=== PATIENT | male | born 1980 | race African-American/Black ===

== ENCOUNTER 2016-07-30 15:58 | Emergency (ER) | payer BC ==
[~2016-07-30] VITALS: Ht 182.9 cm; Wt 86.2 kg
[2016-07-30 16:18] VITALS: BP 138/82
[2016-07-30] MEDS ORDERED: Lidocaine 1% 10mg/ml/Epi 0.005mg/ml 30ml vial INJ ONE (16:30)
[2016-07-30] MEDS ORDERED: TdaP Vaccine 0.5ml Syr IM ONE (16:30)
[2016-07-30] MEDS ORDERED: Bacitracin Oint UD TOPIC ONE (16:30)
[2016-07-30] MEDS ORDERED: BACITRACIN1 APPLIC TOPIC (17:21)
[2016-07-30] MEDS ORDERED: IBUPROFEN600 MG ORAL (17:21)
[2016-07-30 17:25] VITALS: BP 138/82
--- NOTE | 2016-07-30 21:31 | Emergency Room Report ---
History of Present Illness General Chief Complaint: Laceration Source: Patient Present Illness HPI The patient is a 36-year-old male presenting with a laceration to the left knee. The patient states that he slipped in the shower in the left knee broke the glass screen. Pain is described as a 5/10 sharp sensation to the knee. Patient denies radiating pain and denies numbness or tingling. The patient denies prior injury to the knee. Allergies: Coded Allergies: No Known Allergies (Unverified , 07/30/16) Patient History Past Medical History: see triage record Pertinent Family History: none Reviewed Nursing Documentation: PMH: Agreed, PSxH: Agreed Nursing Documentation-PMH Past Medical History: No History, Except For Hx Asthma: Yes Review of Systems All Other Systems: negative except mentioned in HPI Physical Exam Vital Signs Date Time Temp Pulse Resp B/P Pulse Ox O2 Delivery O2 Flow Rate FiO2 07/30/16 16:12 98.1 78 14 138/82 100 Room Air Sp02 EP Interpretation: reviewed, normal General Appearance: no apparent distress, alert, GCS 15, non-toxic Head: normocephalic, atraumatic Eyes: bilateral eye PERRL, bilateral eye normal inspection Respiratory: chest non-tender, lungs clear, normal breath sounds, speaking full sentences Cardiovascular #1: regular rate, rhythm, no edema Musculoskeletal: gait/station normal, normal range of motion, no calf tenderness, tender - TTP over laceration sites Neurologic: alert, oriented x3, responsive, motor strength/tone normal, sensory intact, speech normal Psychiatric: judgement/insight normal, memory normal, mood/affect normal, no suicidal/homicidal ideation Reflexes: 3+ bicep (R), 3+ bicep (L), 3+ tricep (R), 3+ tricep (L), 3+ knee (R) , 3+ knee (L) Skin: normal color, no rash, well hydrated, normal turgor, laceration - L anterior knee: 5cm linear laceration is inferior and 2cm linear laceration is superior. Lymphatic: no adenopathy Procedures Laceration/Wound Repair Laceration/Wound Repair #1: Consent: Verbal Wound Location: lower extremity - L knee Wound's Depth, Shape: superficial, linear Wound Length (cm): 5 Wound Explored: clean Irrigated w/ Saline (ccs): 300 Betadine Prep?: Yes Anesthesia: 1% Lidocaine, Lidocaine w/ Epi Volume Anesthetic (ccs): 5 Wound Debrided: minimal Wound Repaired With: sutures Suture Size/Type: 4:0, proline Number of Sutures: 5 Layer Closure?: No Sterile Dressing Applied?: Yes Splint Applied?: No Sling Applied?: No Patient Tolerated: Well Complications: None Laceration/Wound Repair #2: Consent: Verbal Wound Location: lower extremity - L knee Wound's Depth, Shape: superficial, linear Wound Length (cm): 2 Wound Explored: clean Irrigated w/ Saline (ccs): 100 Betadine Prep?: Yes Anesthesia: 1% Lidocaine, Lidocaine w/ Epi Volume Anesthetic (ccs): 3 Wound Repaired With: sutures Suture Size/Type: 4:0, proline Layer Closure?: No Sterile Dressing Applied?: Yes Splint Applied?: No Sling Applied?: No Patient Tolerated: Well Complications: None Medical Decision Making PA Attestation Dr. Aguillon is my supervising physician. Patient management was discussed with my supervising physician Diagnostic Impression: Primary Impression: Laceration ER Course The patient is a 36-year-old male presenting with a laceration to the left knee. Ddx considered include but not limited to fracture, tendon/ligament injury, avulsion, nerve damage PE: vitals WNL. NAD. L anterior knee: 5cm linear laceration is inferior and 2cm linear laceration is superior. No bleeding. Extends through dermis. Full AROM of knee. SILT. No edema. No bony tenderness. The wound was irrigated with normal saline and cleaned with betadine. A 27g needle was used to administer 8mL total of lidocaine w. epi for local anaesthesia. 7 sutures were placed with 4-0 Prolene. The wound was well approximated and the patient tolerated the procedure well. The wound was then cleaned and bacitracin was applied. Tetanus shot given The patient will be discharged home. Suture instructions given. Patient will follow up with primary care doctor Last Vital Signs Date Time Temp Pulse Resp B/P Pulse Ox O2 Delivery O2 Flow Rate FiO2 07/30/16 16:18 98.1 78 14 138/82 100 Room Air Status: improved Disposition: HOME, SELF-CARE Condition: Improved Scripts Bacitracin (Bacitracin Zinc) 15 Gm Oint...g. 1 APPLIC TOPIC TID, #15 GM Prov: BREANNA MORENO 07/30/16 Ibuprofen* (MOTRIN*) 600 Mg Tablet 600 MG ORAL Q8H Y for For Pain, #30 TAB 0 Refills Prov: BREANNA MORENO 07/30/16 Referrals: [facility],REFERRING (PCP) Patient Instructions: Laceration Care, Adult Additional Instructions: I discussed my findings with the patient. All questions and concerns have been answered. Treatment and medication compliance have been addressed. I advised the patient that they need to follow up with PMD in 7 days for wound check and suture removal. If you are unable to see PMD, return to the ED in 7 days. Return to ED if pain remains or worsens, you notice discharge from the wound, the wound continues to bleed, the suture/s fall out, you notice a fever or chills, or for any reason. Patient is advised to keep the wound clean. Patient verbalized understanding of discharge instructions. BREANNA MORENO Jul 30, 2016 21:31
== END 2016-07-30 17:25 | disposition home or self-care (01) ==
LOC: EMR 17:20
DX: S81.012A Laceration without foreign body, left knee, initial encounter (principal); Z23 Encounter for immunization; J45.909 Unspecified asthma, uncomplicated; W18.2XXA Fall in (into) shower or empty bathtub, initial encounter; Y92.009 Unspecified place in unspecified non-institutional (private) residence as the place of occurrence of the external cause; Y99.8 Other external cause status
CPT/HCPCS: 90471; 90715

== ENCOUNTER 2016-08-27 06:52 | Emergency (ER) | payer BC ==
[~2016-08-27] VITALS: Ht 182.9 cm; Wt 87.1 kg
[~2016-08-27 06:52] MED LIST: BACITRACIN1 APPLIC TOPIC; IBUPROFEN600 MG ORAL
[2016-08-27] MEDS ORDERED: ATIVAN0.5 MG ORAL (07:04)
[2016-08-27 07:10] VITALS: BP 151/100
[2016-08-27 08:00] VITALS: BP 111/64
[2016-08-27] MEDS ORDERED: CYCLOBENZAPRINE10 MG ORAL (08:01)
[2016-08-27] MEDS ORDERED: IBUPROFEN800 MG ORAL (08:01)
[2016-08-27 08:10] VITALS: BP 111/64
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
== END 2016-08-27 08:10 | disposition home or self-care (01) ==
LOC: EMR 07:32
DX: S16.1XXA Strain of muscle, fascia and tendon at neck level, initial encounter (principal); F41.9 Anxiety disorder, unspecified; J45.909 Unspecified asthma, uncomplicated; V43.52XA Car driver injured in collision with other type car in traffic accident, initial encounter; Y92.410 Unspecified street and highway as the place of occurrence of the external cause; Y99.8 Other external cause status
CPT/HCPCS: 99284